=== PATIENT | female | born 1985 | race Native Hawaiian/Other Pacific Islander ===

== ENCOUNTER 2022-09-04 14:46 | Emergency (ER) | payer SELFPAY ==
[~2022-09-04] VITALS: Ht 160 cm; Wt 118.6 kg
[2022-09-04 15:22] VITALS: BP 159/115
[2022-09-04] MEDS ORDERED: ALBU8HFA INH (17:58)
== END 2022-09-04 18:25 | disposition home or self-care (01) ==
LOC: ER 14:48
DX: R05.9 Cough, unspecified (principal); Z20.822 Contact with and (suspected) exposure to COVID-19; R03.0 Elevated blood-pressure reading, without diagnosis of hypertension; Z79.899 Other long term (current) drug therapy
CPT/HCPCS: 87635; 99283; C9803